=== PATIENT | female | born 1985 | race Hispanic/Latino ===

== ENCOUNTER 2019-02-20 12:39 | Emergency (ER) | payer SELFPAY ==
[2019-02-20] MEDS ORDERED: Ibuprofen 200 MG TAB ONE (14:15)
--- NOTE | 2019-02-20 14:33 | RAD ---
SINGLE VIEW CHEST: Date: 02/20/19 COMPARISON: 10/12/16. HISTORY: Fever and cough. FINDINGS: Single view of the chest shows a normal sized cardiomediastinal silhouette. There is no evidence of c onsolidation, mass, or pleural effusion. The bones are unremarkable. IMPRESSION: No evidence of acute cardiopulmonary disease. POS: [facility]
== END 2019-02-20 16:59 | disposition home or self-care (01) ==
LOC: ERS 12:39
DX: B34.9 Viral infection, unspecified (principal); F17.210 Nicotine dependence, cigarettes, uncomplicated
CPT/HCPCS: 71045; 87804; 96360